=== PATIENT | male | born 1990 | race Caucasian/White ===

== ENCOUNTER 2021-03-07 22:01 | Emergency (ER) | payer OTHER ==
[~2021-03-07] VITALS: Ht 180.3 cm; Wt 112.0 kg
[~2021-03-07 22:01] MED LIST: CELEXA40 MG PO; VYVANSE50 MG PO
[2021-03-07] MEDS ORDERED: ACETAMINOPHEN 325 MG TAB PO STA (22:25)
[2021-03-07] MEDS ORDERED: ACETAMINOPHEN 325 MG TAB ONE (22:42)
[2021-03-07] MEDS ORDERED: DEXAMETHASONE SOD PHOS 10 MG/1 ML VIAL IM STA (22:47)
[2021-03-07] MEDS ORDERED: AZITHROMYCIN 250 MG TAB PO STA (22:47)
[2021-03-07] MEDS ORDERED: PREDNISONE20 MG PO (22:58)
[2021-03-07] MEDS ORDERED: VENTOLIN HFA18 GM INH (22:58)
[2021-03-07] MEDS ORDERED: AZITHROMYCIN250 MG PO (22:58)
[2021-03-07] MEDS ORDERED: AZITHROMYCIN 250 MG TAB ONE (23:07)
[2021-03-07] MEDS ORDERED: DEXAMETHASONE SOD PHOS INJ 4 MG/ML SDV ONE (23:07)
[2021-03-07] MEDS ORDERED: SODIUM CHLORIDE 0.9% 1000ML 1,000 ML ONE (23:10)
[2021-03-07 23:57] VITALS: BP 130/86
== END 2021-03-07 23:57 | disposition home or self-care (01) ==
LOC: FSED 22:25
DX: J06.9 Acute upper respiratory infection, unspecified (principal); F90.9 Attention-deficit hyperactivity disorder, unspecified type; Z79.899 Other long term (current) drug therapy
CPT/HCPCS: 83518; 87400; 96374; 99283; J1100 ×2; J7030

== ENCOUNTER 2021-07-28 22:27 | Emergency (ER) | payer OTHER ==
[~2021-07-28] VITALS: Ht 180.3 cm; Wt 112.0 kg
[~2021-07-28 22:27] MED LIST changes: +AZITHROMYCIN250 MG PO; +PREDNISONE20 MG PO; +VENTOLIN HFA18 GM INH
== END 2021-07-29 00:05 | disposition home or self-care (01) ==
LOC: FSED 22:44
DX: H53.8 Other visual disturbances (principal); I10 Essential (primary) hypertension; E78.5 Hyperlipidemia, unspecified; E78.00 Pure hypercholesterolemia, unspecified
CPT/HCPCS: 70450; 99283

== ENCOUNTER 2021-08-18 14:59 | Emergency (ER) | payer OTHER ==
[~2021-08-18] VITALS: Ht 180.3 cm; Wt 112.3 kg
[2021-08-18] MEDS ORDERED: DIOVAN80 MG PO (15:10)
[2021-08-18] MEDS ORDERED: CRESTOR10 MG PO (15:10)
[2021-08-18] MEDS ORDERED: NAPROSYN500 MG PO (16:52)
[2021-08-18] MEDS ORDERED: METHOCARBAMOL500 MG PO (16:52)
== END 2021-08-18 17:25 | disposition home or self-care (01) ==
LOC: FSED 15:12
DX: M54.50 Low back pain, unspecified (principal); I10 Essential (primary) hypertension; E78.5 Hyperlipidemia, unspecified; Z79.899 Other long term (current) drug therapy
CPT/HCPCS: 72100; 99283

== ENCOUNTER 2024-11-05 19:35 | Emergency (ER) | payer OTHER ==
[~2024-11-05] VITALS: Ht 180.3 cm; Wt 113.4 kg
[~2024-11-05 19:35] MED LIST changes: +CRESTOR10 MG PO; +DIOVAN80 MG PO; +METHOCARBAMOL500 MG PO; +NAPROSYN500 MG PO; +TIVICAY50 MG PO; +TRUVADA 200 MG1 EACH PO
[2024-11-05] MEDS: DEXAMETHASONE SOD PHOS 10 MG/1 ML VIAL IM ONE (20:45)
[2024-11-05] MEDS: ORPHENADRINE CITRATE 30 MG/ML VIAL IM ONE (20:45)
[2024-11-05 22:33] VITALS: PULSE 86; RESP 16; O2SAT 98
[2024-11-05] MEDS ORDERED: ORPHENADRINE C100 MG PO (22:40)
[2024-11-05] MEDS ORDERED: MEDROL4 M2 PO (22:40)
[2024-11-05 22:48] VITALS: TEMP 98.9
== END 2024-11-05 22:50 | disposition home or self-care (01) ==
LOC: ER 20:21
DX: M51.26 Other intervertebral disc displacement, lumbar region (principal); X50.1XXA Overexertion from prolonged static or awkward postures, initial encounter; Y92.89 Other specified places as the place of occurrence of the external cause; I10 Essential (primary) hypertension; E78.5 Hyperlipidemia, unspecified; E66.9 Obesity, unspecified
CPT/HCPCS: 72131; 99284; J1100; J2360